=== PATIENT | female | born 1995 | race Two or more races ===

== ENCOUNTER 2020-03-04 16:55 | Emergency (ER) | payer MEDICAID ==
[~2020-03-04] VITALS: Ht 157.5 cm; Wt 81.6 kg
[2020-03-04 17:09] VITALS: BP 134/85
--- NOTE | 2020-03-04 17:11 | NUR ---
ED Nurse Note:pt. came with c/o lower abdominal cramping and possible , VSS, no vaginal bleeding, urine sent to labs
--- NOTE | 2020-03-04 17:26 | Emergency Room Report ---
History of Present Illness General Chief Complaint: Abdominal Pain Source: Patient Present Illness HPI 24-year-old female, G1, with no past medical history, presents with mild lower abdominal cramping for 3 to 4 days. She has some intermittent associated nausea but denies any vomiting, dysuria, hematuria, vaginal bleeding, fever, diarrhea, constipation, or flank pain. She took 2 home tests, last one being 3 days ago, which were both negative. She last had unprotected intercourse 4 days ago. LMP 01/25/2020. 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 History Past Medical History: see triage record Last Menstrual Period: 01/25/20 Now: No Reviewed Nursing Documentation: PMH: Agreed; PSxH: Agreed Nursing Documentation-PMH Past Medical History: No History, Except For Review of Systems All Other Systems: negative except mentioned in HPI Physical Exam Vital Signs Date Time Temp Pulse Resp B/P (MAP) Pulse Ox O2 Delivery O2 Flow Rate FiO2 03/04/20 17:03 98.4 84 16 134/85 (101) 96 Room Air Sp02 EP Interpretation: reviewed, normal General Appearance: normal inspection, well appearing, no apparent distress, alert, GCS 15, non-toxic Neck: normal inspection, full range of motion, supple Respiratory: lungs clear, normal breath sounds, no respiratory distress Cardiovascular #1: normal peripheral pulses, regular rate, rhythm Gastrointestinal: normal inspection, normal bowel sounds, non tender, soft, no mass, no organomegaly, no guarding, no rebound Musculoskeletal: normal inspection, normal range of motion, gait/station normal Neurologic: alert, oriented x3, speech normal Psychiatric: judgement/insight normal, mood/affect normal Skin: no rash, normal color, warm/dry Lymphatic: no adenopathy Medical Decision Making PA Attestation Dr. Crowley is my supervising physician whom patient management and care has been discussed with. ER Course Pt. presents to the ED c/o mild lower abdominal cramping for 3-4 days. LMP 2019. Patient requesting test as she is trying to become . Ddx considered but are not limited to , UTI, ectopic , ovarian torsion, appendicitis, diverticulitis. Vital signs: are WNL, pt. is afebrile H&PE are most consistent with UTI. ORDERS: HCG serum and urine both negative. UA shows UTI. Urine culture sent. ED INTERVENTIONS: None required at this time. DISCHARGE: At this time pt. is stable for d/c to home. Abdomen is non tender. Will provide printed patient care instructions, and prescription for Keflex for UTI. Advised to retake home test in 1 week if still has not gotten her period. Advised to follow up outpatient in 1-2 days. Care plan and follow up instructions have been discussed with the patient prior to discharge. Laboratory Tests Test 03/04/20 17:14 03/04/20 17:40 Urine Color [place] Urine Appearance Clear Urine pH 5 (4.5-8.0) Urine Specific [place] 1.030 (1.005-1.035) Urine Protein Negative (NEGATIVE) Urine Glucose (UA) Negative (NEGATIVE) Urine Ketones 2+ (NEGATIVE) H Urine Blood Negative (NEGATIVE) Urine Nitrite Negative (NEGATIVE) Urine Bilirubin Negative (NEGATIVE) Urine Ictotest Negative (NEGATIVE) Urine Urobilinogen Normal MG/DL (0.0-1.0) Urine Leukocyte Esterase 1+ (NEGATIVE) H Urine RBC 0-2 /HPF (0 - 2) Urine WBC 5-10 /HPF (0 - 2) H Urine Squamous Epithelial Cells Many /LPF (NONE/OCC) H Urine Bacteria Many /HPF (NONE) H Urine HCG, Qualitative Negative (NEGATIVE) Human Chorionic Gonadotropin, Quant < 1 mIU/mL (1-6) L Last Vital Signs Date Time Temp Pulse Resp B/P (MAP) Pulse Ox O2 Delivery O2 Flow Rate FiO2 03/04/20 17:09 98.4 64 16 134/85 96 Room Air Disposition: HOME, SELF-CARE Condition: Stable Scripts Cephalexin* (KEFLEX*) 500 Mg Capsule 500 MG ORAL TID for 7 Days, #21 CAP Prov: Parisa Burden N. [place] 03/04/20 Parisa Burden N. P[employer]ot Mar 04, 2020 17:26
[2020-03-04 17:51] LABS: APPEARANCE,URINE CLEAR; BILIRUBIN, URINE NEGATIVE (NEGATIVE); COLOR,URINE AMBER; GLUCOSE, URINE (UA) NEGATIVE (NEGATIVE); KETONES,URINE 2+ (NEGATIVE); LEUKOCYTE ESTERASE ,URINE 1+ (NEGATIVE); NITRITE,URINE NEGATIVE (NEGATIVE); PH,URINE 5 (4.5-8.0); PROTEIN,URINE NEGATIVE (NEGATIVE); UROBILINOGEN,URINE NORMAL MG/DL (0.0-1.0)
[2020-03-04] MEDS ORDERED: CEPHALEXIN500 MG ORAL (18:41)
[2020-03-04 18:53] VITALS: BP 114/81
--- NOTE | 2020-03-04 18:55 | NUR ---
ER DISCHARGE NOTE: Patient is cleared to be discharged per ERMD. D/C instruction and prescription given to patient. Patient verbalized understanding of it. ID removed. Patient ambulated out with steady gait with all his belongings.
== END 2020-03-04 18:57 | disposition home or self-care (01) ==
LOC: EMR 17:33
DX: R10.30 Lower abdominal pain, unspecified (principal); R11.0 Nausea
CPT/HCPCS: 36415; 81001; 81025; 84702; 87086; Z7502; 99283